=== PATIENT | male | born 1995 | race Caucasian/White ===

== ENCOUNTER → 2020-02-01 | Outpatient (CLI) | payer BC ==
[~2020-02-01] MED LIST: IOPAMIDOL 370 MG/ML 200 ML INFUS..BTL INJ ONE; SODIUM CHLORIDE 0.9% 50ML 50 ML ONE
[2020-02-01 08:38] LABS: BLOOD UREA NITROGEN 7 mg/dL (7-26); BUN/CREATININE RATIO 8 (6-25); CREATININE, SERUM 0.88 mg/dL (0.72-1.25); EST GLOMERULAR FILTRATION RATE > 60 ML/MIN (60-)
--- NOTE | 2020-02-01 10:10 | Diagnostic Imaging Report ---
CT of the abdomen and pelvis, with contrast. History: Right testicular mass, neoplasm. Comparison: None available. Technique: Multidetector CT scanning of the abdomen and pelvis was performed from the level of the lung bases to the inferior pubic rami after intravenous administration of contrast. Coronal and sagittal multiplanar reformations were obtained. RADIATION DOSE: Total DLP: 953.95 mGy*cm Dose modulation, iterative reconstruction, and/or weight based adjustment of the mA/kV was utilized to reduce the radiation dose to as low as reasonably achievable. FINDINGS: The visualized lungs are clear. The imaged portion of the heart demonstrates no significant abnormalities. The liver is normal in size and attenuation without evidence for focal abnormality. The gallbladder is unremarkable. There is no biliary ductal dilatation. The stomach, spleen, pancreas, and bilateral adrenal glands are unremarkable. Incidentally noted is a splenule adjacent to the spleen. The kidneys are normal in size and location and enhance symmetrically. There is no evidence for hydronephrosis. No ureteral stone or dilatation is appreciated. The urinary bladder demonstrates no significant abnormalities. The prostate is unremarkable. In this patient with reported history of right testicular mass, the right testicle is enlarged and appears heterogeneous but incompletely evaluated on this CT examination. A suspected small hydrocele is noted. The abdominal aorta is normal course and caliber. The IVC is unremarkable. Please note evaluation the bowel is limited without the use of enteric contrast material. The visualized loops of small and large bowel demonstrate no evidence of obstruction or inflammation. The appendix is visualized and appears unremarkable. There is no ascites or intraperitoneal free air. Normal sized para-aortic lymph nodes are noted measuring up to 8 mm in short axis (axial image 46). Normal-sized bilateral inguinal lymph nodes are noted. No abnormally enlarged lymph nodes are identified by CT size criteria. The osseous structures demonstrate no evidence of acute fracture or destructive process. The extraperitoneal soft tissues are unremarkable. IMPRESSION: 1. Enlarged, heterogeneous appearing right testicle, likely reflecting patient's known testicular mass. Recommend correlation with outside testicular ultrasound examination. 2. Nonspecific normal sized periaortic and inguinal lymph nodes noted. No abnormally enlarged lymph node enlargement identified. 3. Otherwise, no evidence for metastatic disease within the abdomen/pelvis. Signed by: Dr. Haja Damon MD on 02/01/2020 10:07 AM
== END ==
LOC: CT 07:45
PROVIDERS: ATTEND Urology
DX: N50.89 Other specified disorders of the male genital organs (principal)
CPT/HCPCS: 36415; 74177; 82565; 84520; Q9967

== ENCOUNTER 2020-06-30 09:08 | Emergency (ER) | payer BC ==
[~2020-06-30] VITALS: Ht 177.8 cm; Wt 115.7 kg
[2020-06-30] MEDS ORDERED: HYDROMORPHONE 1MG/1ML INJ IV STA (09:34)
[2020-06-30] MEDS ORDERED: ONDANSETRON HCL INJ 2MG/ML 2ML 2 MG/ML VIAL IV STA (09:34)
[2020-06-30] MEDS ORDERED: METHYLPREDNISOLONE SOD SUCC 125 MG/2ML VIAL IV STA (09:34)
[2020-06-30] MEDS ORDERED: SODIUM CHLORIDE 0.9% 1000ML 1,000 ML IV STA (09:34)
[2020-06-30 09:52] LABS: BASOPHILS % 0.4 % (0.0-1.0); EOSINOPHILS # (AUTO) 0.1 (0.0-0.4); EOSINOPHILS % 0.7 % (0.0-6.0); HEMOGLOBIN 14.9 g/dL (14.0-18.0); LYMPHOCYTES # (AUTO) 2.6 (1.0-3.2); LYMPHOCYTES % 23.9 % (18.0-39.1); MEAN CORPUSCULAR HEMOGLOBIN 28.5 pg (28-32); MEAN CORPUSCULAR HGB CONC 33.9 g/dL (31-35); MEAN CORPUSCULAR VOLUME 84.1 fL (81-99); MONOCYTES # (AUTO) 0.7 (0.2-0.8); MONOCYTES % 6.6 % (4.4-11.3); NEUTROPHILS # (AUTO) 7.3 (2.1-6.9); PLATELET COUNT 344 x10e3/uL (140-360); RED BLOOD COUNT 5.23 x10e6/uL (4.3-5.7); RED CELL DISTRIBUTION WIDTH 12.2 % (11.7-14.4)
[2020-06-30 10:00] LABS: INR 0.95; PROTHROMBIN TIME 13.2 seconds (11.9-14.5)
[2020-06-30 10:08] LABS: ALANINE AMINOTRANSFERASE 22 IU/L (0-55); ALBUMIN 4.6 g/dL (3.5-5.0); ALBUMIN/GLOBULIN RATIO 1.3 (0.8-2.0); ALKALINE PHOSPHATASE 62 IU/L (40-150); ANION GAP 11.2 mmol/L (8-16); BLOOD UREA NITROGEN 9 mg/dL (7-26); BUN/CREATININE RATIO 11 (6-25); CARBON DIOXIDE 28 mmol/L (22-29); CHLORIDE 100 mmol/L (98-107); EST GLOMERULAR FILTRATION RATE > 60 ML/MIN (60-); GLUCOSE 88 mg/dL (74-118); POTASSIUM 3.2 mmol/L (3.5-5.1); SODIUM 136 mmol/L (136-145)
--- NOTE | 2020-06-30 10:16 | Emergency Department Note ---
History of Present Illnes History of Present Illness Chief Complaint: Back Pain History of Present Illness This is a 25 year old male PT WITH TESTICULAR CANCER WITH RT TESTICLE REMOVED. PT WITH CT SCAN REPORT STATES LARGE NECROTIC RETROPERITONEAL LYMPH NODE C/W METASTASIS. PT HERE FOR BACK PAIN. PT AAOX4. AMBULATORY. PT VERY PLEASANT AND COOPERATIVE IN TRIAGE. WITH PT. 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 Any updates have been documented here. Past Medical History Recent Fever: No Clinical Suspicion of Infectio: No New/Unexplained Change in Ment: No Past Medical History: Hypertension, Cancer Other Medical History: TESTICULAR CANCER Other Surgery: RT TESTICLE REMOVED D/T CANCER Social History Smoking Cessation: Never Smoker Counseling Performed: No Alcohol Use: None Any Illegal Drug Use: No TB Exposure/Symptoms: No Physically hurt or threatened: No Family History Family history of heart diseas: No Other Any Pre-Existing Lines (PICC,: No Review of Systems Review of Systems Constitutional: Reports no symptoms EENTM: Reports no symptoms Cardiovascular: Reports no symptoms Respiratory: Reports no symptoms Gastrointestinal: Reports no symptoms Genitourinary: Reports no symptoms Musculoskeletal: Reports as per HPI, Reports back pain Integumentary: Reports no symptoms Neurological: Reports no symptoms Psychological: Reports no symptoms Endocrine: Reports no symptoms Hematological/Lymphatic: Reports no symptoms Physical Exam Related Data Allergies: Coded Allergies: No Known Allergies (Unverified , 06/30/20) Triage Vital Signs Vital Signs Date Time Temp Pulse Resp B/P (MAP) Pulse Ox O2 Delivery O2 Flow Rate FiO2 06/30/20 09:26 97.4 90 16 143/91 100 Room Air Vital signs reviewed: Yes Physical Exam CONSTITUTIONAL Constitutional: Present well-developed, Present well-nourished HENT HENT: Present normocephalic, Present atraumatic, Present oropharynx clear/moist, Present nose normal HENT L/R: Present left ext ear normal, Present right ext ear normal EYES Eyes: Reports PERRL, Reports conjunctivae normal NECK Neck: Present ROM normal PULMONARY Pulmonary: Present effort normal, Present breath sounds normal CARDIOVASCULAR Cardiovascular: Present regular rhythm, Present heart sounds normal, Present capillary refill normal, Present normal rate GASTROINTESTINAL Abdominal: Present soft, Present nontender, Present bowel sounds normal GENITOURINARY Genitourinary: Present exam deferred SKIN Skin: Present warm, Present dry MUSCULOSKELETAL Musculoskeletal: Present ROM normal, Present other (no tenderness of back/spine) NEUROLOGICAL Neurological: Present alert, Present oriented x 3, Present DTRs normal, Present no gross motor or sensory deficits; Absent cranial nerve deficit, Absent sensory deficit, Absent abnormal gait, Absent weakness PSYCHOLOGICAL Psychological: Present mood/affect normal, Present judgement normal Results Laboratory Result Diagram: 06/30/2018 Laboratory Laboratory Tests Test 06/30/20 09:18 White Blood Count 10.69 x10e3/uL (4.8-10.8) Red Blood Count 5.23 x10e6/uL (4.3-5.7) Hemoglobin 14.9 g/dL (14.0-18.0) Hematocrit 44.0 % (38.2-49.6) Mean Corpuscular Volume 84.1 fL (81-99) Mean Corpuscular Hemoglobin 28.5 pg (28-32) Mean Corpuscular Hemoglobin Concent 33.9 g/dL (31-35) Red Cell Distribution Width 12.2 % (11.7-14.4) Platelet Count 344 x10e3/uL (140-360) Neutrophils (%) (Auto) 68.0 % (38.7-80.0) Lymphocytes (%) (Auto) 23.9 % (18.0-39.1) Monocytes (%) (Auto) 6.6 % (4.4-11.3) Eosinophils (%) (Auto) 0.7 % (0.0-6.0) Basophils (%) (Auto) 0.4 % (0.0-1.0) Neutrophils # (Auto) 7.3 (2.1-6.9) Lymphocytes # (Auto) 2.6 (1.0-3.2) Monocytes # (Auto) 0.7 (0.2-0.8) Eosinophils # (Auto) 0.1 (0.0-0.4) Basophils # (Auto) 0.0 (0.0-0.1) Absolute Immature Granulocyte (auto 0.04 x10e3/uL (0-0.1) Prothrombin Time 13.2 seconds (11.9-14.5) Prothromb Time International Ratio 0.95 Lab results reviewed: Yes Assessment & Plan Medical Decision Making MDM PT WITH KNOWN TESTICULAR CA S/P RIGHT ORCHIECTOMY, OUTSIDE CT SHOWING LIKELY RETROPERITONEAL METASTASIS, PRESENTS WITH 1 WEEK OF PROGRESSIVE LBP - I SPOKE WITH DR Radha RUFF WHO WANTS PT ADMITTED FOR PAIN CONTROL AND WE WILL GET BONE SCAN TO EVALUATE FOR SPINE METS. CHECK CBC, CHEM, UA AND ADMIT Reassessment Reassessment PT DOES NOT WANT ADMISSION HERE, WANTS TO LEAVE AND GO TO [facility] ER AND GET ESTABLISHED WITH AN ONCOLOGIST - I OFFERED TO TRY TO TRANSFER OR ALSO SPEAK WITH DR RUFF ABOUT OTHER OPTIONS BUT HE IS INSISTENT ON GOING NOW. PT SAYS HE IS GOING NOW, DOES NOT WANT TO WAIT FOR LAB RESULTS Assessment & Plan Final Impression: (1) Testicular cancer (2) Back pain (3) Retroperitoneal lymphadenopathy Depart Disposition: HOME, SELF-CARE Last Vital Signs Date Time Temp Pulse Resp B/P (MAP) Pulse Ox O2 Delivery O2 Flow Rate FiO2 06/30/20 09:26 97.4 90 16 143/91 100 Room Air Medications in the ED Hydromorphone HCl 1 mg ONCE STAT IV Last administered on 06/30/20 10:01; Admin Dose 1 MG; Start 06/30/20 at 09:34; Stop 06/30/20 at 09:50; Status DC Ondansetron HCl 4 mg ONCE STAT IV Last administered on 06/30/20at 10:01; Admin Dose 4 MG; Start 06/30/20 at 09:34; Stop 06/30/20 at 09:50; Status DC Methylprednisolone Sodium Succinate 125 mg ONCE STAT IV Last administered on 06/30/20at 10:01; Admin Dose 125 MG; Start 06/30/20 at 09:34; Stop 06/30/20 at 09:47; Status DC Sodium Chloride 1,000 ml @ 0 mls/hr Q0M STAT IV Last administered on 06/30/20at 10:01; Admin Dose 1,000 MLS/HR; Start 06/30/20 at 09:34; Stop 06/30/20 at 09:47; Status DC AMANUEL ADAM MD Jun 30, 2020 10:15
[2020-06-30] MEDS ORDERED: POTASSIUM CHLORIDE 20 MEQ TAB CR PO STA (10:18)
--- OUTSIDE RECORDS SUMMARY | 2020-06-30 10:24 | XMS REPORT | Continuity of Care Document ---
Author Author [facility] t Organization [facility] Address [address] [place] [address] [place] [id number] Phone Unavailable Care Team Providers Care Scrum Project Manager Name Role Phone SUDHIR RUFF Attphys Unavailable Problems This patient has no known problems. Allergies, Adverse Reactions, Alerts This patient has no known allergies or adverse reactions. Medications This patient has no known medications. Procedures This patient has no known procedures. Results Test Description Test Time Test Comments Results Result Comments Source CT ABDOMEN/PELVIS W 2020-02-01 09:57:00 [place] [address] Patient Name: OREN FERRER MR #: [id number] : 1995 Age/Sex: 24/M Req #: [id number] Adm Physician: Ordered by: SUDHIR RUFF MD Report #: [id number] Location: CT Room/Bed: Procedure: [id number] CT/CT ABDOMEN/PELVIS W Exam Date: 02/01/20 Exam Time: 0850 REPORT STATUS: Signed CT of the abdomen and pelvis, with contrast. History: Right testicular mass, neoplasm. Comparison: None available. Technique: Multidetector CT scanning of the abdomen and pelvis was performed from the level of the lung bases to the inferior pubic rami after intravenous administration of contrast. Coronal and sagittal multiplanar reformations were obtained. RADIATION DOSE: Total DLP: 953.95 mGy*cm Dose modulation, iterative reconstruction, and/or weight based adjustment of the mA/kV was utilized to reduce the radiation dose to as low as reasonably achievable. FINDINGS: The visualized lungs are clear. The imaged portion of the heart demonstrates no significant abnormalities. The liver is normal in size and attenuation without evidence for focal abnormality. The gallbladder is unremarkable. There is no biliary ductal dilatation. The stomach, spleen, pancreas, and bilateral adrenal glands are unremarkable. Incidentally noted is a splenule adjacent to the spleen. The kidneys are normal in size and location and enhance symmetrically. There is no evidence for hydronephrosis. No ureteral stone or dilatation is appreciated. The urinary bladder demonstrates no significant abnormalities. The prostate is unremarkable. In this patient with reported history of right testicular mass, the right testicle is enlarged and appears heterogeneous but incompletely evaluated on this CT examination. A suspected small hydrocele is noted. The abdominal aorta is normal course and caliber. The IVC is unremarkable. Please note evaluation the bowel is limited without the use of enteric contrast material. The visualized loops of small and large bowel demonstrate no evidence of obstruction or inflammation. The appendix is visualized and appears unremarkable. There is no ascites or i ntraperitoneal free air. Normal sized para-aortic lymph nodes are noted measuring up to 8 mm in short axis (axial image 46). Normal-sized bilateral inguinal lymph nodes are noted. No abnormally enlarged lymph nodes are identified by CT size criteria. The osseous structures demonstrate no evidence of acute fracture or destructive process. The extraperitoneal soft tissues are unremarkable. IMPRESSION: 1. Enlarged, heterogeneous appearing right testicle, likely reflecting patient's known testicular mass. Recommend correlation with outside testicular ultrasound examination. 2. Nonspecific normal sized periaortic and inguinal lymph nodes noted. No abnormally enlarged lymph node enlargement identified. 3. Otherwise, no evidence for metastatic disease within the abdomen/pelvis. Signed by: Dr. Haja Damon MD on 02/01/2020 10:07 AM Dictated By: HAJA DAMON MD [id number] Transcribed By: ALEKSANDER on 02/01/20 1007 COPY TO: SUDHIR RUFF MD
[2020-06-30 10:35] LABS: PARTIAL THROMBOPLASTIN TIME 35.3 seconds (23.8-35.5)
== END 2020-06-30 10:39 | disposition home or self-care (01) ==
LOC: ER 09:20
DX: C62.90 Malignant neoplasm of unspecified testis, unspecified whether descended or undescended (principal); R59.1 Generalized enlarged lymph nodes; M54.5 Low back pain; I10 Essential (primary) hypertension
CPT/HCPCS: 36415; 80053; 85025; 85610; 85730; 99283; J1170; J2405; J2930; J7030